=== PATIENT | female | born 1990 | race Caucasian/White ===

== ENCOUNTER → 2017-02-25 | Outpatient (CLI) | payer BC ==
[~2017-02-25] MED LIST: ANAPROX DS550 MG PO; CIPROFLOXACIN500 MG PO; DARVOCET N 1001 TAB PO; DIFLUCAN150 MG PO; DOXYCYCLINE; DOXYCYCLINE HY100 M3 PO; FLAGYL500 MG PO; HYDROCODONE BIT1 T11 PO; HYTRIN1 MG PO; LEVAQUIN250 MG PO; MACROBID100 M1 PO; NKHM; PERCOCET 325 MG1 TA2 PO; PERCOCET 325 MG1 TA6 PO; ROBAXIN500 MG PO; TORADOL10 MG PO; TRAMADOL HCL50 MG PO; ULTRAM50 MG PO; VIBRAMYCIN100 MG PO; VICODIN 5/500 505 MG PO; VICODIN 500 MG-1 TAB PO; VICODIN ES 7501 TAB PO; ZANTAC 150150 MG PO; ZOFRAN ODT4 MG SL; Zofran4 MG PO
== END | disposition home or self-care (01) ==
LOC: US 09:17
DX: K76.0 Fatty (change of) liver, not elsewhere classified (principal)

== ENCOUNTER → 2017-06-19 | Outpatient (CLI) | payer OTHER | END | disposition home or self-care (01) | LOC: US 08:17 | DX: N28.89 Other specified disorders of kidney and ureter (principal) ==

== ENCOUNTER → 2017-10-15 | Outpatient (CLI) | payer OTHER | END | disposition home or self-care (01) | LOC: RAD 20:43 | DX: M25.552 Pain in left hip (principal) ==

== ENCOUNTER → 2017-12-23 | Outpatient (CLI) | payer OTHER ==
--- NOTE | ~2017-12-23 | HM ---
[place], [place] HOLTER MONITOR REPORT [id number] UNIT #: [id number] ROOM: DOCTOR: EL AVILEZ MD BIRTHDATE: [birth year] DOS: 12/23/2017 INDICATIONS: Palpitations. FINDINGS: The patient was in sinus rhythm throughout the 24-hour period. Average heart rate was 91 with heart rates varying from 56-162 beats per minute. No premature ventricular contractions or ventricular tachycardia were seen. Occasional premature atrial contractions with 1 couplet were present. There was no SVT. The patient did complain of symptoms on 4 occasions. When she complained of being anxious and short of breath, she was in sinus rhythm at a rate of 90. When she was complaining of shortness of breath and heavy breathing at work, she had sinus tachycardia at a rate of 154. Subsequently, she complained of a sharp short pain in the right side of her chest at which time she was in sinus rhythm at a rate of 99. There was no specific arrhythmia associated with her symptoms. IMPRESSION: Normal sinus rhythm. No significant arrhythmias noted. EL AVILEZ MD CM:HOLTER:HOLTER MONITOR REPORT 27 [phone] EL AVILEZ MD
== END | disposition home or self-care (01) ==
LOC: CARD 10:54
DX: R00.2 Palpitations (principal)

== ENCOUNTER → 2018-01-13 | Outpatient (CLI) | payer OTHER | END | disposition home or self-care (01) | LOC: LAB 11:12 | DX: N92.6 Irregular menstruation, unspecified (principal) ==

== ENCOUNTER → 2019-03-12 | Outpatient (CLI) | payer OTHER | LOC: ORTHO 01:31 | DX: M25.552 Pain in left hip (principal) ==

== ENCOUNTER → 2019-03-15 | Outpatient (CLI) | payer OTHER | END | disposition home or self-care (01) | LOC: RAD 18:11 | DX: M54.9 Dorsalgia, unspecified (principal) ==

== ENCOUNTER → 2019-04-02 | Outpatient (CLI) | payer OTHER | END | disposition home or self-care (01) | LOC: US 06:22 → MRI 08:00 | DX: M54.5 Low back pain (principal); R10.2 Pelvic and perineal pain ==

== ENCOUNTER → 2019-07-30 | Outpatient (CLI) | payer OTHER | END | disposition home or self-care (01) | LOC: US 00:52 | DX: K21.9 Gastro-esophageal reflux disease without esophagitis (principal); R19.7 Diarrhea, unspecified; R10.9 Unspecified abdominal pain ==

== ENCOUNTER → 2019-09-01 | Outpatient (CLI) | payer OTHER | END | disposition home or self-care (01) | LOC: US 14:17 | DX: N63.11 Unspecified lump in the right breast, upper outer quadrant (principal); M79.89 Other specified soft tissue disorders; R59.0 Localized enlarged lymph nodes ==

== ENCOUNTER 2019-11-15 08:54 | Emergency (ER) | payer OTHER ==
[2019-11-15 09:35] LABS: BASO # 0.1 10*3/uL (0.0-0.1); BASO % 0.4 % (0.0-1.0); EOS # 0.2 10*3/uL (0.0-0.4); EOS % 1.4 % (1.0-4.0); HEMATOCRIT 43.1 % (37.0-47.0); HEMOGLOBIN 14.1 g/dl (12.0-16.0); LYMPH # 3.1 10*3/uL (1.3-4.4); LYMPH % 24.6 % (27.0-41.0); MEAN CELL VOLUME 93.3 fl (81.0-99.0); MEAN CORPUSCULAR HGB 30.5 pg (27.0-31.0); MEAN CORPUSCULAR HGB CONC 32.7 g/dl (33.0-37.0); MONO # 0.6 10*3/uL (0.1-1.0); MONO % 4.4 % (3.0-9.0); NEUT # 8.5 10*3/uL (2.3-7.9); NEUT % 68.7 % (47.0-73.0); PLATELET COUNT AUTOMATED 321 10*3/uL (130-400); RED BLOOD COUNT 4.62 10*6/uL (4.10-5.10); RED CELL DISTRI WIDTH 13.1 % (0-14.5); WHITE BLOOD COUNT 12.4 10*3/uL (4.8-10.8)
[2019-11-15 09:36] LABS: BILIRUBIN NEGATIVE (NEGATIVE); BLOOD TRACE-INTACT (NEGATIVE); CLARITY SL CLOUDY (CLEAR); COLOR YELLOW (YELLOW); GLUCOSE NEGATIVE (NEGATIVE); KETONE NEGATIVE (NEGATIVE); LEUKO ESTERASE NEGATIVE (NEGATIVE); NITRITE NEGATIVE (NEGATIVE); PH 6.5 (5.0-9.0); UROBILINOGEN 0.2 E.U./dl (0.2-1.0)
[2019-11-15 09:44] LABS: BACTERIA 1+; EPITHELIAL CELLS TNTC
[2019-11-15 09:47] LABS: BUN 14 mg/dl (7-24); CHLORIDE 104 mmol/L (98-107); CREATININE 0.76 mg/dL (0.55-1.02); POTASSIUM 3.8 mmol/L (3.5-5.1); SODIUM 133 mmol/L (136-145)
== END 2019-11-15 12:59 | disposition home or self-care (01) ==
LOC: ED 08:54
PROVIDERS: Emergency Medicine
DX: R10.2 Pelvic and perineal pain (principal); R10.31 Right lower quadrant pain; R11.0 Nausea; R63.0 Anorexia; Z88.1 Allergy status to other antibiotic agents; Z79.899 Other long term (current) drug therapy

== ENCOUNTER → 2020-01-29 | Outpatient (CLI) | payer OTHER ==
[2020-02-01 11:06] LABS: TESTOSTERONE FREE, (DIRECT) 3.8 pg/mL (0.0-4.2)
[2020-02-02 09:06] LABS: ESTRADIOL, SERUM, MS 249 pg/mL (.)
[2020-02-03 00:09] LABS: CODFISH, IGE <0.10 kU/L (Class 0); EGG WHITE, IGE <0.10 kU/L (Class 0); MILK (COW), IGE <0.10 kU/L (Class 0); PEANUT, IGE <0.10 kU/L (Class 0); SOYBEAN, IGE <0.10 kU/L (Class 0); WHEAT, IGE <0.10 kU/L (Class 0)
== END | disposition home or self-care (01) ==
LOC: LAB 07:17
PROVIDERS: Family Medicine
DX: N91.1 Secondary amenorrhea (principal); R19.8 Other specified symptoms and signs involving the digestive system and abdomen

== ENCOUNTER → 2020-02-15 | Outpatient (CLI) | payer OTHER | END | disposition home or self-care (01) | LOC: US 07:25 | DX: N83.202 Unspecified ovarian cyst, left side (principal); N91.1 Secondary amenorrhea ==

== ENCOUNTER → 2020-04-27 | Outpatient (CLI) | payer OTHER | END | disposition home or self-care (01) | LOC: US 04:13 | DX: N83.202 Unspecified ovarian cyst, left side (principal); R10.2 Pelvic and perineal pain ==

== ENCOUNTER 2021-02-13 20:58 | Emergency (ER) | payer OTHER ==
[~2021-02-13] VITALS: Ht 157.4 cm; Wt 86.2 kg
[2021-02-13 21:33] LABS: BILIRUBIN Negative (Negative); BLOOD Negative (Negative); CLARITY Clear (Clear); COLOR Yellow (Yellow); GLUCOSE Negative (Negative); KETONE Negative (Negative); LEUKO ESTERASE Trace (Negative); NITRITE Negative (Negative); UROBILINOGEN 0.2 E.U./dl (0.0-1.0)
[2021-02-13 21:44] LABS: BACTERIA 2+; EPITHELIAL CELLS 31-40
[2021-02-13 22:22] LABS: HEMATOCRIT 34.4 % (37.0-47.0); MEAN CELL VOLUME 88.7 fl (81.0-99.0); MEAN CORPUSCULAR HGB 30.2 pg (27.0-31.0); PLATELET COUNT AUTOMATED 277 10*3/uL (130-400); RED BLOOD COUNT 3.88 10*6/uL (4.10-5.10); RED CELL DISTRI WIDTH 12.8 % (0-14.5); WHITE BLOOD COUNT 11.5 10*3/uL (4.8-10.8)
[2021-02-13 22:41] LABS: ALBUMIN 3.2 gm/dl (3.1-4.5); ALKALINE PHOSPHATASE 82 U/L (45-117); BUN 12 mg/dl (7-24); CHLORIDE 110 mmol/L (98-107); CREATININE 0.71 mg/dL (0.55-1.02); POTASSIUM 3.5 mmol/L (3.5-5.1); SGOT/AST 17 IU/L (3-35); SGPT/ALT 22 U/L (12-78); SODIUM 138 mmol/L (136-145)
[2021-02-13 22:43] LABS: B-hCG (QUALITATIVE) NEGATIVE (NEGATIVE)
[2021-02-13 23:00] LABS: ATYPICAL LYMPHS 5 % (0-0); TOTAL CELLS COUNTED 100 #CELLS
[2021-02-13 23:01] LABS: OVALOCYTES FEW; PLATELET SUFFICIENCY NORMAL (NORMAL)
[2021-02-14] MEDS ORDERED: HYDROCODON-ACE1 EACH PO (01:13)
== END 2021-02-14 01:51 | disposition home or self-care (01) ==
LOC: ED 20:58
PROVIDERS: Physician Assistant
DX: N83.201 Unspecified ovarian cyst, right side (principal); Z88.8 Allergy status to other drugs, medicaments and biological substances; Z79.899 Other long term (current) drug therapy

== ENCOUNTER → 2021-02-14 | Outpatient (CLI) | payer OTHER ==
[~2021-02-14] MED LIST changes: +HYDROCODON-ACE1 EACH PO
== END | disposition home or self-care (01) ==
LOC: US 11:09
PROVIDERS: ATTEND Family Medicine
DX: N83.291 Other ovarian cyst, right side (principal); N94.89 Other specified conditions associated with female genital organs and menstrual cycle

== ENCOUNTER → 2021-03-08 | Day surgery (SDC) | payer OTHER ==
[2021-03-05 11:52] VITALS: BP 125/78
[~2021-03-08] VITALS: Ht 157.4 cm; Wt 86.2 kg
[~2021-03-08] MED LIST changes: +CLARITIN10 MG PO; +COLACE100 MG PO; +DROSPIRENONE-E1 EACH PO; +FAMOTIDINE20 M1 PO; +PANTOPRAZOLE SO40 MG PO; +PERCOCET 5-3251 EACH PO; +PROZAC20 MG PO; +ZOFRAN4 MG PO
[2021-03-08 11:15] VITALS: BP 125/72
[2021-03-08 14:55] VITALS: BP 137/78
[2021-03-08 15:10] VITALS: BP 151/70
[2021-03-08 15:25] VITALS: BP 120/74
[2021-03-08 15:40] VITALS: BP 121/75
[2021-03-08 15:54] VITALS: BP 111/68
== END ==
LOC: SDC 03-05 11:00
PROVIDERS: ATTEND Surgery
DX: R10.32 Left lower quadrant pain (principal); N83.201 Unspecified ovarian cyst, right side; F41.9 Anxiety disorder, unspecified; F32.9 Major depressive disorder, single episode, unspecified; K21.9 Gastro-esophageal reflux disease without esophagitis; Z87.891 Personal history of nicotine dependence; Z79.899 Other long term (current) drug therapy; Z20.822 Contact with and (suspected) exposure to COVID-19

== ENCOUNTER → 2021-03-22 | Outpatient (CLI) | payer OTHER | END | disposition home or self-care (01) | LOC: CT 07:55 | PROVIDERS: ATTEND Surgery | DX: R10.2 Pelvic and perineal pain (principal); Z98.890 Other specified postprocedural states ==

== ENCOUNTER → 2022-12-20 | Outpatient (CLI) | payer BC | END | disposition home or self-care (01) | LOC: LAB 17:39 | PROVIDERS: ATTEND Family Medicine | DX: Z20.828 Contact with and (suspected) exposure to other viral communicable diseases (principal) ==

== ENCOUNTER 2022-12-30 07:58 | Emergency (ER) | payer BC ==
[~2022-12-30] VITALS: Ht 157.4 cm; Wt 81.6 kg
[2022-12-30 08:49] LABS: BASO # 0.1 10*3/uL (0.0-0.1); BASO % 0.5 % (0.0-1.0); EOS # 0.1 10*3/uL (0.0-0.4); HEMATOCRIT 38.7 % (37.0-47.0); LYMPH # 2.8 10*3/uL (1.3-4.4); LYMPH % 29.5 % (27.0-41.0); MEAN CELL VOLUME 92.1 fl (81.0-99.0); MEAN CORPUSCULAR HGB 31.9 pg (27.0-31.0); MEAN CORPUSCULAR HGB CONC 34.6 g/dl (33.0-37.0); MEAN PLATELET VOLUME 8.9 fl (9.6-12.3); MONO # 0.4 10*3/uL (0.1-1.0); NEUT # 6.2 10*3/uL (2.3-7.9); NEUT % 64.6 % (47.0-73.0); PLATELET COUNT AUTOMATED 276 10*3/uL (130-400); RED CELL DISTRI WIDTH 12.6 % (0-14.5); WHITE BLOOD COUNT 9.6 10*3/uL (4.8-10.8)
[2022-12-30 09:10] LABS: ALKALINE PHOSPHATASE 70 U/L (46-116); BUN 10 mg/dl (9-23); CHLORIDE 108 mmol/L (98-107); LIPASE 48 U/L (12-53); POTASSIUM 3.7 mmol/L (3.4-5.1); SGPT/ALT 11 U/L (10-49); TOTAL PROTEIN 7.1 gm/dL (6.0-8.0)
[2022-12-30 09:27] LABS: BILIRUBIN Negative (Negative); BLOOD Negative (Negative); CLARITY Cloudy (Clear); COLOR Yellow (Yellow); GLUCOSE Negative (Negative); KETONE Negative (Negative); LEUKO ESTERASE 3+ (Negative); NITRITE Negative (Negative); PH 7.5 (4.5-8.0); UROBILINOGEN 0.2 E.U./dl (0.0-1.0)
[2022-12-30 09:43] LABS: WBC 21-30 wbc/hpf (0-5)
[2022-12-30 09:44] LABS: BACTERIA 4+; EPITHELIAL CELLS 31-40
[2022-12-30] MEDS ORDERED: CIPRO500 MG PO (10:15)
== END 2022-12-30 10:38 | disposition home or self-care (01) ==
LOC: ED 07:58
PROVIDERS: Family Medicine
DX: N39.0 Urinary tract infection, site not specified (principal); K21.9 Gastro-esophageal reflux disease without esophagitis; Z87.442 Personal history of urinary calculi; Z88.8 Allergy status to other drugs, medicaments and biological substances; Z87.891 Personal history of nicotine dependence

== ENCOUNTER 2023-06-17 17:44 | Emergency (ER) | payer BC ==
[~2023-06-17] VITALS: Ht 157.4 cm; Wt 77.1 kg
[~2023-06-17 17:44] MED LIST changes: +CIPRO500 MG PO
== END 2023-06-17 21:32 | disposition home or self-care (01) ==
LOC: ED 17:44
DX: M72.2 Plantar fascial fibromatosis (principal); K21.9 Gastro-esophageal reflux disease without esophagitis; Z87.442 Personal history of urinary calculi; Z88.8 Allergy status to other drugs, medicaments and biological substances

== ENCOUNTER 2023-12-20 18:09 | Emergency (ER) | payer BC ==
[~2023-12-20] VITALS: Ht 157.4 cm; Wt 86.2 kg
[2023-12-20 18:45] LABS: BASO % 0.4 % (0.0-1.0); EOS # 0.3 10*3/uL (0.0-0.4); EOS % 2.6 % (1.0-4.0); HEMATOCRIT 38.6 % (37.0-47.0); LYMPH # 3.1 10*3/uL (1.3-4.4); LYMPH % 29.4 % (27.0-41.0); MEAN CELL VOLUME 91.3 fl (81.0-99.0); MEAN CORPUSCULAR HGB 29.8 pg (27.0-31.0); MEAN CORPUSCULAR HGB CONC 32.6 g/dl (33.0-37.0); MEAN PLATELET VOLUME 8.8 fl (9.6-12.3); MONO # 0.6 10*3/uL (0.1-1.0); MONO % 5.7 % (3.0-9.0); NEUT # 6.4 10*3/uL (2.3-7.9); NEUT % 61.2 % (47.0-73.0); PLATELET COUNT AUTOMATED 285 10*3/uL (130-400); RED BLOOD COUNT 4.23 10*6/uL (4.10-5.10); RED CELL DISTRI WIDTH 12.5 % (0-14.5); WHITE BLOOD COUNT 10.5 10*3/uL (4.8-10.8)
[2023-12-20 18:56] LABS: ACT PARTIAL THROMBO TIME 28.3 SECONDS (20.0-32.1)
[2023-12-20 19:04] LABS: BUN 15 mg/dl (9-23); CHLORIDE 106 mmol/L (98-107); POTASSIUM 3.7 mmol/L (3.4-5.1)
== END 2023-12-20 19:30 | disposition home or self-care (01) ==
LOC: ED 18:09
PROVIDERS: Physician Assistant Medical
DX: R04.0 Epistaxis (principal); F41.9 Anxiety disorder, unspecified; F32.A Depression, unspecified; K21.9 Gastro-esophageal reflux disease without esophagitis; Z91.048 Other nonmedicinal substance allergy status; Z88.1 Allergy status to other antibiotic agents; Z79.2 Long term (current) use of antibiotics; Z79.899 Other long term (current) drug therapy

== ENCOUNTER 2024-09-15 02:06 | Emergency (ER) | payer BC ==
[~2024-09-15] VITALS: Ht 167.6 cm; Wt 99.8 kg
[2024-09-15] MEDS ORDERED: ACETAMINOPHEN 325 MG TAB PO ONE (02:25)
[2024-09-15 02:35] LABS: BILIRUBIN Negative (Negative); BLOOD 2+ (Negative); CLARITY Turbid (Clear); COLOR Yellow (Yellow); GLUCOSE Negative (Negative); KETONE Negative (Negative); LEUKO ESTERASE 1+ (Negative); NITRITE Negative (Negative); UROBILINOGEN 0.2 E.U./dl (0.0-1.0)
[2024-09-15 03:01] LABS: BACTERIA 4+; EPITHELIAL CELLS TNTC
[2024-09-15 03:02] LABS: RBC 16-20 rbc/hpf (0-2)
[2024-09-15] MEDS ORDERED: AMOX-CLAV 875-1 EACH PO (03:35)
== END 2024-09-15 04:13 | disposition home or self-care (01) ==
LOC: ED 02:06
PROVIDERS: Internal Medicine
DX: O26.893 Other specified pregnancy related conditions, third trimester (principal); R82.71 Bacteriuria; R10.2 Pelvic and perineal pain; K21.9 Gastro-esophageal reflux disease without esophagitis; Z87.442 Personal history of urinary calculi; Z3A.34 34 weeks gestation of pregnancy; Z91.048 Other nonmedicinal substance allergy status; Z88.8 Allergy status to other drugs, medicaments and biological substances

== ENCOUNTER 2024-11-26 16:14 | Emergency (ER) | payer BC, MEDICAID ==
[~2024-11-26 16:14] MED LIST changes: +AMOX-CLAV 875-1 EACH PO
== END 2024-11-26 17:45 | disposition left against medical advice (07) ==
LOC: ED 16:14
DX: N23 Unspecified renal colic (principal); Z53.21 Procedure and treatment not carried out due to patient leaving prior to being seen by health care provider

== ENCOUNTER → 2024-12-06 | Outpatient (CLI) | payer BC, MEDICAID | END | disposition home or self-care (01) | LOC: US 15:58 | PROVIDERS: ATTEND Family Medicine | DX: N20.0 Calculus of kidney (principal); R16.1 Splenomegaly, not elsewhere classified; N32.89 Other specified disorders of bladder; R30.0 Dysuria ==

== ENCOUNTER → 2025-02-19 | Outpatient (CLI) | payer BC, OTHER, MEDICAID ==
[2025-02-19 08:36] LABS: BASO % 0.3 % (0.0-1.0); EOS # 0.1 10*3/uL (0.0-0.4); EOS % 1.4 % (1.0-4.0); MEAN CELL VOLUME 84.3 fl (81.0-99.0); MEAN CORPUSCULAR HGB 27.9 pg (27.0-31.0); MEAN CORPUSCULAR HGB CONC 33.1 g/dl (33.0-37.0); MEAN PLATELET VOLUME 8.7 fl (9.6-12.3); MONO # 0.4 10*3/uL (0.1-1.0); MONO % 4.8 % (3.0-9.0); NEUT # 5.8 10*3/uL (2.3-7.9); PLATELET COUNT AUTOMATED 266 10*3/uL (130-400); RED BLOOD COUNT 4.27 10*6/uL (4.10-5.10); RED CELL DISTRI WIDTH 13.9 % (0-14.5); WHITE BLOOD COUNT 8.8 10*3/uL (4.8-10.8)
[2025-02-19 09:11] LABS: ALKALINE PHOSPHATASE 75 U/L (46-116); BUN 15 mg/dl (9-23); CHLORIDE 106 mmol/L (98-107); CHOLESTEROL 143 mg/dL (<200); LDL CHOLESTEROL 72 mg/dL (9-159); POTASSIUM 3.8 mmol/L (3.4-5.1); SGPT/ALT 26 U/L (5-49); TOTAL PROTEIN 7.2 gm/dL (6.0-8.0); TRIGLYCERIDES 135 mg/dl (<150)
[2025-02-19 09:48] LABS: VITAMIN D, 25-HYDROXY 34.5 ng/mL (30-100)
== END | disposition home or self-care (01) ==
LOC: LAB 08:12
PROVIDERS: ATTEND Nurse Practitioner Primary Care
DX: E78.2 Mixed hyperlipidemia (principal); E55.9 Vitamin D deficiency, unspecified; L65.9 Nonscarring hair loss, unspecified; E61.1 Iron deficiency